=== PATIENT | male | born 1945 | race Caucasian/White ===

== ENCOUNTER 2018-11-09 04:43 | Emergency (ER) | payer OTHER ==
[2018-11-09] MEDS ORDERED: Ondansetron PF 4 MG/2 ML Vial ONE (05:11)
[2018-11-09 05:30] LABS: #Lymphocytes 0.9 thou/uL (1.20-3.40); #Neutrophils 13.8 thou/uL (1.40-6.50); %Basophils 0.3 % (0.0-1.0); %Eosinophils 0.1 % (0.0-10.0); %Lymphocytes 5.7 % (21.0-51.0); %Monocytes 6.4 % (0.0-10.0); %Neutrophils 87.6 % (42.0-75.0); Hemoglobin 17.1 g/dL (14.0-18.0); Mean Corpuscular HGB CONC 31.8 g/dL (32.0-36.0); Mean Corpuscular Hemoglobin 27.2 pg (27.0-31.0); Mean Corpuscular Volume 85.8 fL (78.0-98.0); Platelet Count 286 thou/uL (130-400); RBC Distribution Width 11.7 % (11.5-14.5); Red Blood Cell (RBC) Count 6.27 mill/uL (4.70-6.10); White Blood Cell (WBC) Count 15.8 thou/uL (4.8-10.8)
[2018-11-09 05:46] LABS: ALT (SGPT) 36 U/L (8-55); AST (SGOT) 28 U/L (5-34); Albumin 4.9 g/dL (3.4-4.8); Alkaline Phosphatase 124 U/L (40-150); Anion Gap 18 mmol/L (10-20); BUN (Urea Nitrogen) 22 mg/dL (8.4-25.7); Bilirubin, Total 0.9 mg/dL (0.2-1.2); Calc. Creatinine Clearance 0 mL/min (70-130); Calcium 9.6 mg/dL (7.8-10.44); Carbon Dioxide 22 mmol/L (23-31); Chloride 105 mmol/L (98-107); Estimated GFR-MDRD 28; Globulin 2.7 g/dL (2.4-3.5); Glucose 146 mg/dL (83-110); Lipase 19 U/L (8-78); Protein, Total 7.6 g/dL (5.8-8.1); Sodium 140 mmol/L (136-145)
[2018-11-09] MEDS ORDERED: Sodium Chloride 0.9% 1,000 ML ONE ×2 (06:31→07:39)
[2018-11-09 08:50] LABS: Bilirubin Small (Negative); Blood, Urine Negative (Negative); Clarity Clear (Clear); Glucose, Urine (Dipstick) Negative (Negative); Leukocyte Negative (Negative); Nitrite Negative (Negative); Urobilinogen 0.2 mg/dL (0.2-1.0); pH, Urine 5.5 (5.0-9.0)
[2018-11-09 08:52] LABS: Protein, Urine (Dipstick) Trace mg/dL (Neg-Trace)
--- NOTE | 2018-11-09 09:58 | RAD ---
ABDOMEN TWO VIEWS: CHEST SINGLE VIEW: HISTORY: Nausea and vomiting. COMPARISON: None. FINDINGS: A single view of the chest and two views of the abdomen show a nonspecific, nonobstructed bowel gas p attern. Enumerable surgical clips project over the abdomen. No free air or air-fluid levels are see n on the upright examination. The cardiomediastinal silhouette is normal in size. There is no evidence of consolidation, mass, or pleural effusion. Degenerative changes are seen in the spine. IMPRESSION: Nonobstructive bowel gas pattern. POS: [facility]
== END 2018-11-09 09:20 | disposition home or self-care (01) ==
LOC: NAV ERS 04:43
DX: E86.0 Dehydration (principal); N17.9 Acute kidney failure, unspecified; R19.7 Diarrhea, unspecified; I10 Essential (primary) hypertension; Z79.899 Other long term (current) drug therapy; Z79.82 Long term (current) use of aspirin
CPT/HCPCS: 74022; 80053; 81003; 83690; 85025; 96361; 96374; J2405; J7050